=== PATIENT | female | born 1985 | race African-American/Black ===

== ENCOUNTER 2024-09-03 11:29 | Emergency (ER) | payer OTHER, SELFPAY ==
[2024-09-03 11:31] VITALS: BP 127/81
--- NOTE | 2024-09-03 12:46 | ED.GENMED ---
History of Present Illness
General
Chief Complaint: Abdominal Symptoms
Source: patient
Exam Limitations: none
Time Seen by Provider: 09/03/24 12:09
History of Present Illness
History of Present Illness:
39yoF with a history of anemia and asthma presenting with her mother for evaluation of vomiting. Patient started with a stomach bug about 2 weeks ago with vomiting and diarrhea. She continues to have nausea and vomits after eating. She has not
been keeping down much but is intermittently able to keep down foods. She had a small liquid bowel movement yesterday. She also reports frequent belching as well as some lower abdominal discomfort which she describes as feeling like a gas bubble.
She denies any fevers, chest pain, dysuria. No previous abdominal surgeries. Last menstrual period was about 4 weeks ago.
Phy Exam
General Physical Exam
General Presentation: well appearing and no apparent distress
General age: appears stated age
General Skin: warm and dry
General Habitus: normal
General Mental: alert
ENT Exam
ENT Exam: normocephalic
Cardiovascular Exam
Cardiovascular Exam: regular rate/rhythm
Pulmonary Exam
Pulmonary Exam: lungs clear, no respiratory distress, no rales, no crackles and no rhonchi
Gastrointestinal Exam
Gastrointestinal Exam: soft, non distended and other (Mild tenderness in RLQ. Abdomen soft, non-distended. No rebound or guarding.)
Neurological Exam
Neurological Exam: alert
Donny Coma Scale
Eye Opening: Spontaneous
Verbal Response: Oriented
Motor Response: Obeys Commands
GCS Total Score: 15
Skin Exam
Skin Exam: normal color and warm/dry
Psychiatric Exam
Psychiatric Exam: normal mood/affect
Course
Orders/Labs/Results
Orders:
Orders
09/03/24 12:45
0.9% Sodium Chloride 1000 ml [Nss] 1,000 ml IV BOLUS
Iohexol [Omnipaque] See Protocol PO NOW STA
Ondansetron Injectable [Zofran] 4 mg IV NOW STA
09/03/24 12:46
CT Abd/pel W Iv And Oral Contr Urgent
Comment:
Reason For Exam: lower abd pain, vomiting
Test Result ONCE
09/03/24 13:44
Complete Blood Count/With Diff Urgent
Comprehensive Metabolic Panel Urgent
HCG, Serum Qualitative Screen Urgent
Lipase Urgent
Magnesium Urgent
Abnormal Lab Results
09/03/24
13:44
Hgb 10.7 L g/dL
(12.0-16.0)
Hct 34.7 L %
(37.0-47.0)
MCV 76.1 L fL
(81.0-99.0)
MCH 23.5 L pg
(27.0-31.0)
MCHC 30.8 L g/dL
(33.0-37.0)
RDW 16.5 H %
(11.5-14.5)
Plt Count 447 H 10^3/uL
(130-400)
BUN 6 L mg/dl
(7-17)
Glucose 103 H mg/dl
(70-99)
AST 13 L U/L
(14-36)
09/03/24 13:44
09/03/24 13:44
Vital Signs
Initial and Last Documented VS:
Initial Vital Signs
Temp Pulse Resp BP Pulse Ox
97.8 F 92 16 127/81 98
09/03/24 11:31 09/03/24 11:31 09/03/24 11:31 09/03/24 11:31 09/03/24 11:31
Last Documented Vital Signs
Temp Pulse Resp BP Pulse Ox
97.8 F 92 18 127/81 98
09/03/24 11:31 09/03/24 11:31 09/03/24 12:16 09/03/24 11:31 09/03/24 11:31
MDM/Problems Addressed
Differential Diagnosis Includes:
39yoF here with vomiting. Had a stomach bug 2 weeks ago. Continues to have vomiting after eating and belching. Also c/o gas pains. VSS. She is well appearing in no distress. No signs of peritonitis on abdominal exam. Differential diagnosis includes
but is not limited to: gastroenteritis, colitis, appendicitis, dehydration
Initial ED plan: Check abdominal labs, HCG, and CT abdomen with IV/PO contrast. IV Zofran and fluid bolus for symptoms.
*Critical Care Note
Total Time (30-74mins, 75-104mins- exclusive of procedures): Not Applicable
Update Note
Update Note:
Labs overall unremarkable other than mild anemia with a hemoglobin of 10.7. White count, LFTs, lipase within normal limits. CT shows severe terminal ileitis with cecal colitis. Findings favored to represent an infectious/inflammatory process but
direct visualization recommended to r/o underlying neoplasm. Results discussed with patient and mother and patient was given a copy of her CT scan results. She is actually scheduled to see GI as an outpatient next week because her travel insurance agent
referred her there for an anemia workup. She denies any hematochezia or melena but has been experiencing some weight loss. No indication for hospitalization. She was started on a course of Augmentin. Prescription given for Zofran. Stressed
importance of f/u with GI for a colonoscopy. ED return precautions discussed. Patient expressed understanding and was discharged in stable condition.
ED Attending Note
-
Portions of this chart may have been created with voice recognition software.� Occasional wrong word or��sound alike� substitutions may have occurred due to the inherent limitations of voice recognition software.
Discharge Plan
Departure
Patient Disposition: Home (Routine Discharge)
Date of Disposition: 09/03/24
Time of Disposition: 16:52
Patient with high blood pressure during this ER visit?: No
Discharge Problem:
Terminal ileitis, Nausea and vomiting
Instructions: Acute Nausea and Vomiting
Prescriptions:
New
amoxicillin-pot clavulanate 875-125 mg tablet
1 tab PO BID Qty: 14 0RF
ondansetron 4 mg tablet,disintegrating
4 mg PO Q6H PRN (Reason: nausea and vomiting) Qty: 20 0RF
Referrals:
Shanti Koo, [Family Provider] -
Activity Restrictions/Additional Instructions:
Take antibiotics as prescribed. Take Zofran as needed for nausea. Drink plenty of fluids and eat a bland diet (bananas, rice, applesauce, toast).
Please follow-up with gastroenterology next week as previously scheduled and discuss your abnormal CT findings. Return to the ER with any new or worsening symptoms including fevers.
Interventions
Interventions:
*Risk Screen - Suicide Last Done: 09/03/24 11:31
*General Assessment Last Done: 09/03/24 12:16
*Neglect/Abuse Screening Last Done: 09/03/24 11:31
*ED- Fall Risk Assessment Last Done: 09/03/24 12:16
*ED COVID-19 Vaccine History Last Done: 09/03/24 12:16
*Nursing Disposition Last Done: 09/03/24 17:15
CE-Mhkosi-Qqdyvnnnlg Assessment Last Done: 09/03/24 12:16
Discharge Date and Time
Discharge Date/Time: 09/03/24 17:15
Print Language: CITIZEN [place]
[2024-09-03] MEDS: OMNIPAQUE 50 ML PO (13:07)
[2024-09-03] MEDS: NSS 1000 IV (13:47)
[2024-09-03] MEDS: ZOFRAN 4 MG IV (13:48)
[2024-09-03 14:02] LABS: % Eosinophils 4.1 % (0-6); % Immature Granulocytes 0.2 % (0-0.5); % Lymphocytes 32.4 % (20.5-51.1); % Monocytes 5.7 % (1.7-9.3); % Neutrophils 56.6 % (42.2-75.2); Absolute Basophils 0.1 10^3/uL (0-0.2); Absolute Eosinophils 0.3 10^3/uL (0-0.7); Absolute Monocytes 0.4 10^3/uL (0.1-0.6); Absolute Neutrophils 3.6 10^3/uL (1.4-6.5); Hematocrit 34.7 % (37.0-47.0); Hemoglobin 10.7 g/dL (12.0-16.0); Mean Corp Hgb Conc. 30.8 g/dL (33.0-37.0); Mean Corpuscular Hgb 23.5 pg (27.0-31.0); Mean Corpuscular Volume 76.1 fL (81.0-99.0); Mean Platelet Volume 9.5 fL (7.4-10.4); Nucleated Red Blood Cells % 0 %; Platelet Count 447 10^3/uL (130-400); Red Blood Cell Count 4.56 10^6/uL (4.20-5.40); Red Cell Dist. Width 16.5 % (11.5-14.5); White Blood Cell Count 6.3 10^3/uL (4.8-10.8)
[2024-09-03 14:19] LABS: ALT (SGPT) 11 U/L (0-35); AST (SGOT) 13 U/L (14-36); Albumin 4.1 g/dl (3.5-5.0); Alkaline Phosphatase 76 U/L (38-126); Blood Urea Nitrogen 6 mg/dl (7-17); Calcium 9.9 mg/dl (8.4-10.2); Carbon Dioxide 30 mmol/L (22-30); Chloride 101 mmol/L (98-107); Glucose 103 mg/dl (70-99); Lipase 64 U/L (23-300); Magnesium 2.1 mg/dl (1.6-2.3); Potassium 3.5 mmol/L (3.5-5.1); Sodium 138 mmol/L (135-145); Total Bilirubin 0.6 mg/dl (0.2-1.3); Total Protein 7.8 g/dl (6.3-8.2); eGFR > 60.00
[2024-09-03 14:33] LABS: HCG, Serum Qualitative Screen Negative
[2024-09-03 17:02] VITALS: BMI 24.9
== END 2024-09-03 17:15 | disposition home or self-care (01) ==
LOC: EMR 11:29
PROVIDERS: Physician Assistant; EMERGENCY PHYSICIAN Emergency Medicine; FAMILY PHYSICIAN Family Medicine
DX: K50.00 Crohn's disease of small intestine without complications (principal); R11.2 Nausea with vomiting, unspecified; J45.909 Unspecified asthma, uncomplicated
CPT/HCPCS: 99284; 96374; 96361; 74177; 80053; 83690; 83735; 84703; 85025; Q9967